=== PATIENT | male | born 1960 | race Caucasian/White ===

== ENCOUNTER 2018-10-27 08:59 | Inpatient (IN) | payer BC ==
[~2018-10-27] VITALS: Ht 188 cm; Wt 112.8 kg
[~2018-10-27 08:59] MED LIST: ALBU8.5H8 INH; ALIS150T PO; ALLO300T PO; BUPIVACAINE/PF-EPI 0.5% 1:200K ONE; CARV12.52 PO; CYCL-259 PO; EMPA25TA PO; FENO150C4 PO; GABA300C10 PO; IBUP-1223 PO; INDA2.5T PO; ONDA8TAB16 SL; OXYC-302 PO; ROSU10TA PO; SITA1TAB5 PO
[2018-10-27] MEDS ORDERED: PROMETHAZINE 25 MG/ML, 1ML IV PRN (09:30)
[2018-10-27] MEDS ORDERED: LABETALOL 5MG/ML, 20ML IV PRN (09:30)
[2018-10-27] MEDS ORDERED: ALBUTEROL/IPRATROPIUM 2.5MG/0.5MG, 3 ML NPPB PRN (09:30)
[2018-10-27] MEDS ORDERED: MEPERIDINE/PF 25MG/0.5ML IVPush PRN (09:30)
[2018-10-27] MEDS ORDERED: ONDANSETRON 2MG/ML, 2ML IV PRN ×2 (09:30→17:30)
[2018-10-27] MEDS ORDERED: hydrALAzine 20 MG/ML, 1ML IV PRN (09:30)
[2018-10-27] MEDS ORDERED: ACETAMINOPHEN 325 MG TABLET PO PRN (09:30)
[2018-10-27] MEDS ORDERED: OXYcodone 5 MG/5 ML ORAL.SOL UDC PO PRN (09:30)
[2018-10-27] MEDS ORDERED: LACTATED RINGERS 1,000 ML IV SCH (09:32)
[2018-10-27] MEDS ORDERED: FENTANYL PF 250 MCG/5ML ONE (09:48)
[2018-10-27] MEDS ORDERED: MIDAZOLAM 1 MG/ML, 2ML ONE (09:48)
[2018-10-27 09:54] LABS: BASOPHILS # (AUTO) 0.03 x10^3/uL (0-0.1); BASOPHILS % (AUTO) 1 % (0-1); EOSINOPHILS # (AUTO) 0.09 x10^3/uL (0-0.4); EOSINOPHILS % (AUTO) 1 % (1-7); LYMPHOCYTES # (AUTO) 1.41 x10^3/uL (1-3.4); LYMPHOCYTES % (AUTO) 21 % (22-44); MD NO; MEAN CORPUSCULAR HEMOGLOBIN 25.9 pg (27.5-34.5); MEAN CORPUSCULAR HGB CONC 32.4 g/dL (33.2-36.2); MEAN CORPUSCULAR VOLUME 79.8 fL (81-97); MEAN PLATELET VOLUME 7.6 fL (7.4-10.4); MONOCYTES # (AUTO) 0.57 x10^3/uL (0.2-0.8); MONOCYTES % (AUTO) 9 % (2-9); NEUTROPHILS # (AUTO) 4.47 x10^3/uL (1.8-6.8); NEUTROPHILS % (AUTO) 68 % (42-75); PLATELET COUNT 396 x10^3/uL (130-400); RED BLOOD COUNT 4.99 x10^6/uL (4.38-5.82); RED CELL DISTRIBUTION WIDTH 17.8 % (9.4-14.8)
[2018-10-27 10:07] LABS: ALANINE AMINOTRANSFERASE 22 U/L (12-78); ALBUMIN 3.3 g/dL (3.4-5.0); ANION GAP 7 mmol/L (5-15); CALCIUM 9.7 mg/dL (8.5-10.1); CHLORIDE 103 mmol/L (98-107); CREATININE 1.07 mg/dL (0.7-1.3)
[2018-10-27 10:09] LABS: ALKALINE PHOSPHATASE 60 U/L (45-117); BILIRUBIN,TOTAL 0.4 mg/dL (0.2-1.0); TOTAL PROTEIN 8.1 g/dL (6.4-8.2)
[2018-10-27] MEDS ORDERED: DEXAMETHASONE 4 MG/ML, 5ML ONE (12:24)
[2018-10-27] MEDS ORDERED: ROCURONIUM 10MG/ML,5ML ONE (12:24)
[2018-10-27] MEDS ORDERED: SUCCINYLCHOLINE 20 MG/ML, 10ML ONE (12:24)
[2018-10-27] MEDS ORDERED: PROPOFOL 10 MG/ML, 20ML ONE (12:24)
[2018-10-27] MEDS ORDERED: ONDANSETRON 2MG/ML, 2ML ONE ×2 (12:24→13:18)
[2018-10-27] MEDS ORDERED: CEFAZOLIN 1,000 MG ONE ×2 (12:24)
[2018-10-27] MEDS ORDERED: HYDROmorphone 2 MG/ML, 1ML ONE ×2 (13:51→14:23)
[2018-10-27] MEDS ORDERED: FENTANYL PF 100 MCG/2ML ONE ×2 (13:51→14:23)
[2018-10-27] MEDS: FENTANYL PF 100 MCG/2ML IV PRN ×4 (13:52→14:49)
[2018-10-27] MEDS: HYDROmorphone 2 MG/ML, 1ML IVPush PRN ×5 (13:59→14:30)
[2018-10-27] MEDS ORDERED: HYDROmorphone PCA 30 MG/30 ML IV PRN (14:00)
[2018-10-27] MEDS: OXYcodone/APAP 5/325MG TABLET PO SCH ×3 (14:30→21:00)
[2018-10-27] MEDS ORDERED: DEXTROSE 50%, 50ML SYRINGE IVPush PRN (14:30)
[2018-10-27] MEDS ORDERED: VANCOMYCIN PER PHARMACY MC PRN (14:30)
[2018-10-27] MEDS ORDERED: ALBUTEROL SULFATE 2.5 MG/3 ML NPPB SCH (14:30)
[2018-10-27] MEDS ORDERED: GLUCAGON 1 MG IM PRN (14:30)
[2018-10-27] MEDS ORDERED: DEXTROSE 4 GM TAB.CHEW PO PRN (14:30)
[2018-10-27 15:10] LABS: BASOPHILS % (AUTO) 0 % (0-1); EOSINOPHILS # (AUTO) 0.03 x10^3/uL (0-0.4); EOSINOPHILS % (AUTO) 0 % (1-7); LYMPHOCYTES % (AUTO) 9 % (22-44); MD NO; MEAN CORPUSCULAR HEMOGLOBIN 25.7 pg (27.5-34.5); MEAN CORPUSCULAR HGB CONC 31.9 g/dL (33.2-36.2); MEAN CORPUSCULAR VOLUME 80.4 fL (81-97); MEAN PLATELET VOLUME 7.8 fL (7.4-10.4); MONOCYTES # (AUTO) 0.06 x10^3/uL (0.2-0.8); MONOCYTES % (AUTO) 1 % (2-9); NEUTROPHILS % (AUTO) 90 % (42-75); PLATELET COUNT 379 x10^3/uL (130-400); RED BLOOD COUNT 4.93 x10^6/uL (4.38-5.82); RED CELL DISTRIBUTION WIDTH 17.7 % (9.4-14.8)
[2018-10-27] MEDS ORDERED: NEOSTIGMINE 1 MG/ML, 10ML ONE (15:12)
[2018-10-27] MEDS ORDERED: GLYCOPYRROLATE 0.2MG/1ML, 5ML ONE (15:12)
[2018-10-27 15:16] LABS: ANION GAP 4 mmol/L (5-15); CALCIUM 9.6 mg/dL (8.5-10.1); CHLORIDE 103 mmol/L (98-107); CREATININE 1.05 mg/dL (0.7-1.3); IRON LEVEL 46 mcg/dL (65-175)
[2018-10-27 15:27] LABS: % IRON SATURATION 13 % (20-55); TOTAL IRON BINDING CAPACITY 360 mcg/dL (250-450)
[2018-10-27 15:44] LABS: HEMOGLOBIN A1C 5.9 % (4.2-6.3)
[2018-10-27] MEDS: INSULIN LISPRO 100 UNITS/ML, PEN SQ-INSULIN SCH ×2 (16:00→20:45)
[2018-10-27] MEDS ORDERED: PHARMACOKINETIC MONITORING MC PRN (17:00)
[2018-10-27] MEDS ORDERED: PHARMACOKINETIC CONSULTATION MC ONE (17:00)
[2018-10-27] MEDS: ACETAMINOPHEN 500 MG TABLET PO SCH ×2 (17:30→23:30)
[2018-10-27] MEDS: PIPERACILLIN/TAZO/PMX 3.375GM 50 ML IV SCH (18:02)
[2018-10-27] MEDS: GABAPENTIN 300 MG CAPSULE PO SCH ×2 (18:02→20:48)
[2018-10-27] MEDS: POTASSIUM CHLORIDE 20 MEQ in D5%-0.45% NACL 1,000 ML IV SCH (18:03)
[2018-10-27] MEDS ORDERED: LORazepam 2 MG/ML, 1ML IVPush PRN (18:30)
[2018-10-27 19:32] VITALS: BP 129/90
[2018-10-27] MEDS: VANCOMYCIN 2,300 MG in SODIUM CHLORIDE 0.9% 500 ML IV SCH (19:36)
[2018-10-27] MEDS: SODIUM CHLORIDE FLUSH 10ML SYR IVF SCH (20:47)
[2018-10-27] MEDS: CYCLOBENZAPRINE 10 MG TABLET PO SCH (20:48)
[2018-10-27] MEDS: CARVEDILOL 12.5 MG TABLET PO SCH (20:48)
[2018-10-27] MEDS: FENOFIBRATE 145 MG TABLET PO SCH (20:48)
[2018-10-27] MEDS: METFORMIN HCL PO SCH (20:48)
[2018-10-27] MEDS: SITAGLIPTIN PHOS PO SCH (20:48)
[2018-10-27] MEDS: ATORVASTATIN 20 MG TABLET PO SCH (20:48)
[2018-10-27] MEDS ORDERED: SITAGLIPTIN PHOS PO SCH (21:00)
[2018-10-27] MEDS ORDERED: METFORMIN HCL PO SCH (21:00)
[2018-10-28] MEDS: PIPERACILLIN/TAZO/PMX 3.375GM 50 ML IV SCH ×4 (00:17→21:22)
[2018-10-28] MEDS ORDERED: IBUPROFEN 200 MG TABLET PO PRN (01:00)
[2018-10-28 01:08] VITALS: BP 110/72
[2018-10-28] MEDS: ACETAMINOPHEN 500 MG TABLET PO SCH ×4 (05:30→23:30)
[2018-10-28 05:45] LABS: BASOPHILS # (AUTO) 0.01 x10^3/uL (0-0.1); BASOPHILS % (AUTO) 0 % (0-1); EOSINOPHILS % (AUTO) 0 % (1-7); LYMPHOCYTES # (AUTO) 1.11 x10^3/uL (1-3.4); LYMPHOCYTES % (AUTO) 13 % (22-44); MD NO; MEAN CORPUSCULAR HEMOGLOBIN 26.3 pg (27.5-34.5); MEAN CORPUSCULAR HGB CONC 32.8 g/dL (33.2-36.2); MEAN CORPUSCULAR VOLUME 80.1 fL (81-97); MEAN PLATELET VOLUME 7.8 fL (7.4-10.4); MONOCYTES # (AUTO) 0.58 x10^3/uL (0.2-0.8); MONOCYTES % (AUTO) 7 % (2-9); NEUTROPHILS # (AUTO) 6.85 x10^3/uL (1.8-6.8); NEUTROPHILS % (AUTO) 80 % (42-75); PLATELET COUNT 384 x10^3/uL (130-400); RED BLOOD COUNT 4.54 x10^6/uL (4.38-5.82); RED CELL DISTRIBUTION WIDTH 17.2 % (9.4-14.8)
[2018-10-28 05:49] LABS: CHLORIDE 101 mmol/L (98-107)
[2018-10-28 05:54] LABS: ANION GAP 9 mmol/L (5-15); CALCIUM 9.4 mg/dL (8.5-10.1); CHOL/HDL RATIO 2.6; CHOLESTEROL, TOTAL 95 mg/dL (140-239); CREATININE 0.87 mg/dL (0.7-1.3); HDL CHOL % 38 % (26-37); HDL CHOLESTEROL (DIRECT) 36 mg/dL (40-60); LDL CHOLESTEROL,CALCULATED 36 mg/dL (54-169); TRIGLYCERIDES 116 mg/dL (50-200); VLDL CHOLESTEROL 23 mg/dL (0-25)
[2018-10-28] MEDS: OXYcodone/APAP 5/325MG TABLET PO SCH ×4 (06:06→21:51)
[2018-10-28] MEDS: INSULIN LISPRO 100 UNITS/ML, PEN SQ-INSULIN SCH ×4 (06:09→22:06)
[2018-10-28 07:39] VITALS: BP 106/65
[2018-10-28] MEDS ORDERED: ALLOPURINOL 300 MG TABLET PO SCH (09:00)
[2018-10-28] MEDS: CARVEDILOL 12.5 MG TABLET PO SCH ×3 (09:00→21:24)
[2018-10-28] MEDS: GABAPENTIN 300 MG CAPSULE PO SCH ×3 (09:05→21:24)
[2018-10-28] MEDS: ALLOPURINOL 300 MG TABLET PO SCH (09:05)
[2018-10-28] MEDS: CYCLOBENZAPRINE 10 MG TABLET PO SCH ×3 (09:05→21:24)
[2018-10-28] MEDS: SODIUM CHLORIDE FLUSH 10ML SYR IVF SCH ×2 (09:06→21:22)
[2018-10-28] MEDS: ENOXAPARIN 40 MG/0.4 ML SQ SCH (09:06)
[2018-10-28] MEDS: ALISKIREN HEMIFUMARATE 150 MG PO SCH (09:06)
[2018-10-28] MEDS: METFORMIN HCL PO SCH ×2 (09:07→21:25)
[2018-10-28] MEDS: EMPAGLIFLOZIN 25 MG PO SCH (09:07)
[2018-10-28] MEDS: SITAGLIPTIN PHOS PO SCH ×2 (09:07→21:25)
[2018-10-28] MEDS: INDAPAMIDE 2.5 MG TABLET PO SCH (10:03)
[2018-10-28] MEDS: ALBUTEROL SULFATE 2.5 MG/3 ML NPPB PRN ×3 (12:20→21:30)
[2018-10-28] MEDS: POTASSIUM CHLORIDE 20 MEQ in D5%-0.45% NACL 1,000 ML IV SCH (12:23)
[2018-10-28] MEDS: VANCOMYCIN 2,300 MG in SODIUM CHLORIDE 0.9% 500 ML IV SCH (13:39)
[2018-10-28 14:13] VITALS: BP 106/61
[2018-10-28 19:20] VITALS: BP 108/65
[2018-10-28] MEDS: ATORVASTATIN 20 MG TABLET PO SCH (21:23)
[2018-10-28] MEDS: FENOFIBRATE 145 MG TABLET PO SCH (21:24)
[2018-10-29 00:21] VITALS: BP 114/71
[2018-10-29] MEDS: PIPERACILLIN/TAZO/PMX 3.375GM 50 ML IV SCH ×4 (03:12→20:09)
[2018-10-29] MEDS: ACETAMINOPHEN 500 MG TABLET PO SCH ×4 (05:30→22:31)
[2018-10-29 06:06] LABS: BASOPHILS # (AUTO) 0.04 x10^3/uL (0-0.1); BASOPHILS % (AUTO) 1 % (0-1); EOSINOPHILS # (AUTO) 0.07 x10^3/uL (0-0.4); EOSINOPHILS % (AUTO) 1 % (1-7); LYMPHOCYTES # (AUTO) 1.64 x10^3/uL (1-3.4); LYMPHOCYTES % (AUTO) 23 % (22-44); MD NO; MEAN CORPUSCULAR HEMOGLOBIN 26.4 pg (27.5-34.5); MEAN CORPUSCULAR HGB CONC 32.9 g/dL (33.2-36.2); MEAN CORPUSCULAR VOLUME 80.4 fL (81-97); MEAN PLATELET VOLUME 7.6 fL (7.4-10.4); MONOCYTES # (AUTO) 0.78 x10^3/uL (0.2-0.8); MONOCYTES % (AUTO) 11 % (2-9); NEUTROPHILS # (AUTO) 4.64 x10^3/uL (1.8-6.8); NEUTROPHILS % (AUTO) 65 % (42-75); PLATELET COUNT 348 x10^3/uL (130-400); RED BLOOD COUNT 4.23 x10^6/uL (4.38-5.82); RED CELL DISTRIBUTION WIDTH 17.6 % (9.4-14.8)
[2018-10-29 06:14] LABS: VANCOMYCIN,RANDOM 8.8 mcg/mL
[2018-10-29 06:18] LABS: ALBUMIN 2.9 g/dL (3.4-5.0); ANION GAP 6 mmol/L (5-15); CALCIUM 8.4 mg/dL (8.5-10.1); CHLORIDE 104 mmol/L (98-107)
[2018-10-29 06:19] LABS: CREATININE 1.06 mg/dL (0.7-1.3)
[2018-10-29] MEDS: POTASSIUM CHLORIDE 20 MEQ in D5%-0.45% NACL 1,000 ML IV SCH (06:19)
[2018-10-29] MEDS: OXYcodone/APAP 5/325MG TABLET PO SCH ×4 (06:19→22:31)
[2018-10-29 07:05] VITALS: BP 104/67
[2018-10-29] MEDS: INSULIN LISPRO 100 UNITS/ML, PEN SQ-INSULIN SCH ×4 (07:52→20:18)
[2018-10-29] MEDS: ENOXAPARIN 40 MG/0.4 ML SQ SCH (08:02)
[2018-10-29] MEDS: ALLOPURINOL 300 MG TABLET PO SCH (08:02)
[2018-10-29] MEDS: GABAPENTIN 300 MG CAPSULE PO SCH ×3 (08:02→20:10)
[2018-10-29] MEDS: CYCLOBENZAPRINE 10 MG TABLET PO SCH ×3 (08:02→20:09)
[2018-10-29] MEDS: SITAGLIPTIN PHOS PO SCH (08:03)
[2018-10-29] MEDS: EMPAGLIFLOZIN 25 MG PO SCH (08:03)
[2018-10-29] MEDS: ALISKIREN HEMIFUMARATE 150 MG PO SCH (08:03)
[2018-10-29] MEDS: METFORMIN HCL PO SCH (08:03)
[2018-10-29] MEDS: SODIUM CHLORIDE FLUSH 10ML SYR IVF SCH ×2 (08:03→20:09)
[2018-10-29] MEDS: CARVEDILOL 12.5 MG TABLET PO SCH ×3 (08:18→20:10)
[2018-10-29] MEDS: VANCOMYCIN 2,300 MG in SODIUM CHLORIDE 0.9% 500 ML IV SCH (08:42)
[2018-10-29] MEDS: INDAPAMIDE 2.5 MG TABLET PO SCH (09:11)
[2018-10-29] MEDS: ALBUTEROL SULFATE 2.5 MG/3 ML NPPB PRN (11:00)
[2018-10-29] MEDS ORDERED: IBUPROFEN 200 MG TABLET PO PRN (13:00)
[2018-10-29 14:10] VITALS: BP 107/69
[2018-10-29] MEDS ORDERED: MAGNESIUM SULFATE PMX 2GM/50ML 50 ML IV ONE (17:00)
[2018-10-29 19:12] VITALS: BP 125/78
[2018-10-29] MEDS: ATORVASTATIN 20 MG TABLET PO SCH (20:10)
[2018-10-29] MEDS: FENOFIBRATE 145 MG TABLET PO SCH (20:10)
[2018-10-30 01:25] VITALS: BP 113/67
[2018-10-30] MEDS: VANCOMYCIN 2,300 MG in SODIUM CHLORIDE 0.9% 500 ML IV SCH ×2 (01:34→19:30)
[2018-10-30] MEDS: PIPERACILLIN/TAZO/PMX 3.375GM 50 ML IV SCH ×4 (04:31→22:20)
[2018-10-30 05:20] LABS: BASOPHILS # (AUTO) 0.03 x10^3/uL (0-0.1); BASOPHILS % (AUTO) 1 % (0-1); EOSINOPHILS # (AUTO) 0.12 x10^3/uL (0-0.4); EOSINOPHILS % (AUTO) 2 % (1-7); LYMPHOCYTES # (AUTO) 1.43 x10^3/uL (1-3.4); LYMPHOCYTES % (AUTO) 23 % (22-44); MD NO; MEAN CORPUSCULAR VOLUME 81.1 fL (81-97); MEAN PLATELET VOLUME 7.7 fL (7.4-10.4); MONOCYTES # (AUTO) 0.73 x10^3/uL (0.2-0.8); MONOCYTES % (AUTO) 12 % (2-9); NEUTROPHILS # (AUTO) 3.88 x10^3/uL (1.8-6.8); NEUTROPHILS % (AUTO) 63 % (42-75); PLATELET COUNT 357 x10^3/uL (130-400); RED BLOOD COUNT 4.35 x10^6/uL (4.38-5.82); RED CELL DISTRIBUTION WIDTH 17.8 % (9.4-14.8)
[2018-10-30 05:26] LABS: CHLORIDE 105 mmol/L (98-107)
[2018-10-30] MEDS: ACETAMINOPHEN 500 MG TABLET PO SCH ×4 (05:30→23:33)
[2018-10-30 05:33] LABS: ALANINE AMINOTRANSFERASE 20 U/L (12-78); ALBUMIN 2.8 g/dL (3.4-5.0); ALKALINE PHOSPHATASE 50 U/L (45-117); ANION GAP 6 mmol/L (5-15); BILIRUBIN,TOTAL 0.5 mg/dL (0.2-1.0); CALCIUM 8.2 mg/dL (8.5-10.1); CREATININE 0.98 mg/dL (0.7-1.3); TOTAL PROTEIN 7.3 g/dL (6.4-8.2)
[2018-10-30] MEDS: INSULIN LISPRO 100 UNITS/ML, PEN SQ-INSULIN SCH ×4 (06:18→22:20)
[2018-10-30 07:39] VITALS: BP 126/79
[2018-10-30] MEDS: OXYcodone/APAP 5/325MG TABLET PO SCH (08:01)
[2018-10-30] MEDS: GABAPENTIN 300 MG CAPSULE PO SCH ×3 (08:01→21:58)
[2018-10-30] MEDS: ENOXAPARIN 40 MG/0.4 ML SQ SCH (08:01)
[2018-10-30] MEDS: SODIUM CHLORIDE FLUSH 10ML SYR IVF SCH ×2 (08:46→20:54)
[2018-10-30] MEDS: ALLOPURINOL 300 MG TABLET PO SCH (08:47)
[2018-10-30] MEDS: CARVEDILOL 12.5 MG TABLET PO SCH ×2 (08:47→21:59)
[2018-10-30] MEDS: INDAPAMIDE 2.5 MG TABLET PO SCH (08:47)
[2018-10-30] MEDS: CYCLOBENZAPRINE 10 MG TABLET PO SCH ×3 (08:47→21:58)
[2018-10-30] MEDS: ALISKIREN HEMIFUMARATE 150 MG PO SCH (09:00)
[2018-10-30] MEDS ORDERED: OXYcodone IR 5MG TABLET PO PRN (10:00)
[2018-10-30] MEDS: IBUPROFEN 200 MG TABLET PO SCH ×2 (12:06→16:58)
[2018-10-30 12:46] VITALS: BP 107/67
[2018-10-30 20:10] VITALS: BP 123/68
[2018-10-30] MEDS: VANCOMYCIN 1,500 MG in SODIUM CHLORIDE 0.9% 250 ML IV SCH (20:54)
[2018-10-30] MEDS: ATORVASTATIN 20 MG TABLET PO SCH (21:58)
[2018-10-30] MEDS: FENOFIBRATE 145 MG TABLET PO SCH (21:59)
[2018-10-31 01:45] VITALS: BP 108/61
[2018-10-31] MEDS: ACETAMINOPHEN 500 MG TABLET PO SCH ×4 (04:48→22:59)
[2018-10-31] MEDS: PIPERACILLIN/TAZO/PMX 3.375GM 50 ML IV SCH (04:48)
[2018-10-31 05:47] LABS: ANION GAP 5 mmol/L (5-15); CALCIUM 9.2 mg/dL (8.5-10.1); CHLORIDE 107 mmol/L (98-107)
[2018-10-31 05:52] LABS: ALANINE AMINOTRANSFERASE 28 U/L (12-78); ALKALINE PHOSPHATASE 57 U/L (45-117); BILIRUBIN,TOTAL 0.4 mg/dL (0.2-1.0); CREATININE 0.98 mg/dL (0.7-1.3); TOTAL PROTEIN 7.4 g/dL (6.4-8.2)
[2018-10-31 05:53] LABS: BASOPHILS # (AUTO) 0.03 x10^3/uL (0-0.1); BASOPHILS % (AUTO) 1 % (0-1); EOSINOPHILS # (AUTO) 0.17 x10^3/uL (0-0.4); EOSINOPHILS % (AUTO) 4 % (1-7); LYMPHOCYTES # (AUTO) 1.33 x10^3/uL (1-3.4); LYMPHOCYTES % (AUTO) 30 % (22-44); MD NO; MEAN CORPUSCULAR HEMOGLOBIN 26.3 pg (27.5-34.5); MEAN CORPUSCULAR HGB CONC 32.6 g/dL (33.2-36.2); MEAN CORPUSCULAR VOLUME 80.6 fL (81-97); MEAN PLATELET VOLUME 7.8 fL (7.4-10.4); MONOCYTES # (AUTO) 0.61 x10^3/uL (0.2-0.8); MONOCYTES % (AUTO) 14 % (2-9); NEUTROPHILS # (AUTO) 2.28 x10^3/uL (1.8-6.8); NEUTROPHILS % (AUTO) 52 % (42-75); PLATELET COUNT 373 x10^3/uL (130-400); RED CELL DISTRIBUTION WIDTH 17.8 % (9.4-14.8)
[2018-10-31] MEDS: INSULIN LISPRO 100 UNITS/ML, PEN SQ-INSULIN SCH ×4 (06:10→20:10)
[2018-10-31] MEDS: IBUPROFEN 200 MG TABLET PO SCH ×3 (07:27→17:28)
[2018-10-31] MEDS: GABAPENTIN 300 MG CAPSULE PO SCH ×3 (07:27→20:09)
[2018-10-31] MEDS: ENOXAPARIN 40 MG/0.4 ML SQ SCH (07:27)
[2018-10-31 07:43] VITALS: BP 116/73
[2018-10-31] MEDS: VANCOMYCIN 1,500 MG in SODIUM CHLORIDE 0.9% 250 ML IV SCH (08:37)
[2018-10-31] MEDS: ALLOPURINOL 300 MG TABLET PO SCH (08:38)
[2018-10-31] MEDS: CYCLOBENZAPRINE 10 MG TABLET PO SCH ×3 (08:38→20:10)
[2018-10-31] MEDS: CARVEDILOL 12.5 MG TABLET PO SCH ×2 (08:38→20:10)
[2018-10-31] MEDS: INDAPAMIDE 2.5 MG TABLET PO SCH (08:38)
[2018-10-31] MEDS: SODIUM CHLORIDE FLUSH 10ML SYR IVF SCH ×2 (08:39→20:10)
[2018-10-31] MEDS: ALISKIREN HEMIFUMARATE 150 MG PO SCH (09:00)
[2018-10-31 13:32] VITALS: BP 134/71
[2018-10-31] MEDS: FENOFIBRATE 145 MG TABLET PO SCH (20:09)
[2018-10-31] MEDS: ATORVASTATIN 20 MG TABLET PO SCH (20:10)
[2018-10-31 20:12] VITALS: BP 122/75
[2018-11-01] MEDS: ACETAMINOPHEN 500 MG TABLET PO SCH ×2 (05:01→10:51)
[2018-11-01 05:11] VITALS: BP 114/76
[2018-11-01 05:21] LABS: BASOPHILS # (AUTO) 0.03 x10^3/uL (0-0.1); BASOPHILS % (AUTO) 1 % (0-1); EOSINOPHILS # (AUTO) 0.23 x10^3/uL (0-0.4); EOSINOPHILS % (AUTO) 5 % (1-7); LYMPHOCYTES # (AUTO) 1.62 x10^3/uL (1-3.4); LYMPHOCYTES % (AUTO) 33 % (22-44); MD NO; MEAN CORPUSCULAR HEMOGLOBIN 26.7 pg (27.5-34.5); MEAN CORPUSCULAR HGB CONC 33.3 g/dL (33.2-36.2); MEAN CORPUSCULAR VOLUME 80.2 fL (81-97); MEAN PLATELET VOLUME 7.6 fL (7.4-10.4); MONOCYTES # (AUTO) 0.59 x10^3/uL (0.2-0.8); MONOCYTES % (AUTO) 12 % (2-9); NEUTROPHILS # (AUTO) 2.44 x10^3/uL (1.8-6.8); NEUTROPHILS % (AUTO) 50 % (42-75); PLATELET COUNT 368 x10^3/uL (130-400); RED BLOOD COUNT 4.39 x10^6/uL (4.38-5.82); RED CELL DISTRIBUTION WIDTH 17.9 % (9.4-14.8)
[2018-11-01 05:28] LABS: ALBUMIN 2.8 g/dL (3.4-5.0); ANION GAP 3 mmol/L (5-15); CALCIUM 8.8 mg/dL (8.5-10.1); CHLORIDE 107 mmol/L (98-107); CREATININE 0.93 mg/dL (0.7-1.3)
[2018-11-01] MEDS: INSULIN LISPRO 100 UNITS/ML, PEN SQ-INSULIN SCH ×2 (06:19→10:51)
[2018-11-01] MEDS: CYCLOBENZAPRINE 10 MG TABLET PO SCH (08:41)
[2018-11-01] MEDS: GABAPENTIN 300 MG CAPSULE PO SCH (08:41)
[2018-11-01] MEDS: ALLOPURINOL 300 MG TABLET PO SCH (08:41)
[2018-11-01] MEDS: IBUPROFEN 200 MG TABLET PO SCH (08:41)
[2018-11-01] MEDS: CARVEDILOL 12.5 MG TABLET PO SCH (08:41)
[2018-11-01] MEDS: SODIUM CHLORIDE FLUSH 10ML SYR IVF SCH (08:42)
[2018-11-01] MEDS: ENOXAPARIN 40 MG/0.4 ML SQ SCH (08:42)
[2018-11-01] MEDS: INDAPAMIDE 2.5 MG TABLET PO SCH (09:00)
[2018-11-01] MEDS: ALISKIREN HEMIFUMARATE 150 MG PO SCH (09:00)
[2018-11-01 09:59] VITALS: BP 125/80
== END 2018-11-01 11:25 | disposition home or self-care (01) | DRG 164 ==
LOC: ORIP 08:59 → 4NOR 16:22 → DCLOUNGE 11-01 11:19
PROVIDERS: ADMIT Surgery; ATTEND Surgery
PROC: 0BBP4ZX Excision of Left Pleura, Percutaneous Endoscopic Approach, Diagnostic (ICD-10-PCS; 2018-10-27)
PROC: 0BNL4ZZ Release Left Lung, Percutaneous Endoscopic Approach (ICD-10-PCS; principal; 2018-10-27 11:30)
DX: J86.9 Pyothorax without fistula (principal); J90 Pleural effusion, not elsewhere classified; J95.812 Postprocedural air leak; E78.5 Hyperlipidemia, unspecified; E11.9 Type 2 diabetes mellitus without complications; D64.9 Anemia, unspecified; I10 Essential (primary) hypertension; Z80.0 Family history of malignant neoplasm of digestive organs; Z80.1 Family history of malignant neoplasm of trachea, bronchus and lung; Z85.118 Personal history of other malignant neoplasm of bronchus and lung; Z87.442 Personal history of urinary calculi; Z87.891 Personal history of nicotine dependence; Z90.2 Acquired absence of lung [part of]; Z90.49 Acquired absence of other specified parts of digestive tract
CPT/HCPCS: 36415; 36600; 84145; J3490; J7613; 71045; 80048; 80053; 80061; 80202; 82040; 82728; 82803; 82962; 83036; 83540; 83550; 83605; 83735; 84100; 84443; 85025; 86850; 86900; 87015; 87040; 87070; 87075; 87102; 87116; 87176; 87205; 87206; 88305; 93005; 94640; C1729; G0378; J0690; J1100; J1170; J1650; J2250; J2405; J2543; J2704; J2710; J3010; J3370; J3480; J0330; J2060; J3475; J7040; J7050; J7120

== ENCOUNTER → 2018-12-09 | Outpatient (CLI) | payer BC ==
[~2018-12-09] MED LIST changes: -BUPIVACAINE/PF-EPI 0.5% 1:200K ONE; +OMNIPAQUE 350 MG/ML, 75ML BOTTLE ONE; -ROSU10TA PO; +ROSU10TA2 PO
[2018-12-09 11:49] LABS: CREATININE 1.09 mg/dL (0.7-1.3)
== END | disposition home or self-care (01) ==
LOC: RAD 11:02
PROVIDERS: ATTEND Surgery
DX: Z09 Encounter for follow-up examination after completed treatment for conditions other than malignant neoplasm (principal); Z85.118 Personal history of other malignant neoplasm of bronchus and lung
CPT/HCPCS: 36415; 71260; 82565; Q9967